=== PATIENT | female | born 1955 | race Caucasian/White ===

== ENCOUNTER 2019-10-17 07:56 | Day surgery (SDC) | payer OTHER ==
[~2019-10-17] VITALS: Ht 157.5 cm; Wt 77.1 kg
[~2019-10-17 07:56] MED LIST: CEFAZOLIN SOD 1 GM in D5W 50 ML IV ONE
[2019-10-17] MEDS ORDERED: CEFAZOLIN SOD 1 GM in D5W 50 ML IV ONE (08:15)
[2019-10-17] MEDS ORDERED: LIDOCAINE 1%, 20 ML MDV 20 ML ONE (09:03)
[2019-10-17] MEDS ORDERED: SEVOFLURANE 15 MIN GAS INH ONE (10:06)
[2019-10-17] MEDS ORDERED: MIDAZOLAM HCL 5 MG/5 ML VIAL IVP ONE (10:06)
[2019-10-17] MEDS ORDERED: BUPIVACAINE /PF 0.25% 30 ML VIAL INJ ONE (10:06)
[2019-10-17] MEDS ORDERED: NS IRRIG SOLN 1000 ML IR ONE (10:06)
[2019-10-17] MEDS ORDERED: PROPOFOL 200MG/ 20ML VIAL (DIPRIVAN) IV ONE (10:06)
[2019-10-17] MEDS ORDERED: METHYLENE BLUE 1 ML AMPUL INJ ONE (10:06)
[2019-10-17] MEDS ORDERED: fentaNYL CITRATE/PF 100 MCG/2 ML AMP IVP ONE (10:06)
[2019-10-17] MEDS ORDERED: fentaNYL CITRATE/PF 100 MCG/2 ML AMP IVP PRN (10:30)
[2019-10-17] MEDS ORDERED: HYDROcodone/ACETAMIN 5-325 MG TAB (NORCO/ VICODIN) PO PRN ×2 (11:30)
[2019-10-17] MEDS ORDERED: D5/0.45 NS 1,000 ML IV SCH (11:30)
[2019-10-17] MEDS ORDERED: HYDROmorphone 1 MG INJ. 1 MG/ML AMPUL IVP PRN (11:30)
[2019-10-17] MEDS ORDERED: fentaNYL CITRATE/PF 100 MCG/2 ML AMP ONE (12:31)
[2019-10-17 12:39] VITALS: BP_SYST 133
== END 2019-10-17 15:04 | disposition home or self-care (01) ==
LOC: SDS 07:56 → SMU 07:56 → EDSTATUS 10:30 → SDS 15:04
PROVIDERS: ATTEND Colon & Rectal Surgery
DX: C50.912 Malignant neoplasm of unspecified site of left female breast (principal); F41.9 Anxiety disorder, unspecified; F32.9 Major depressive disorder, single episode, unspecified; E03.9 Hypothyroidism, unspecified; Z96.653 Presence of artificial knee joint, bilateral; Z82.49 Family history of ischemic heart disease and other diseases of the circulatory system; Z80.8 Family history of malignant neoplasm of other organs or systems
CPT/HCPCS: 19281; 19301; 38525; 78195; 88305; 88307; 88329; 88333; 88342; A9541; J0690; J2001; J2250; J2704; J3010; J3490; J7060; J7120; Q9968